=== PATIENT | female | born 1935 | race American Indian/Alaskan Native ===

== ENCOUNTER 2019-02-07 12:59 | Inpatient (IN) | payer OTHER ==
--- NOTE | 2019-02-07 13:18 | Emergency Department Report ---
Blank Doc - Documentation Documentation: 83 y/o female presents with family reporting a 1 week history of worsening sp eech, arm weakness, and change in mental status. History of HTN and prescribed BP medications however did not take the medications while in [place] for the last 1-2 months which his when family yessi noticed symptoms. They called to have her picked up due to mental status change and weakness. She was picked up yesterday continuing to c/o of weakness, speech changes and HTN. This initial assessment/diagnostic orders/clinical plan/treatment(s) is/are subject to change based on patient's health status, clinical progression and re- assessment by fellow clinical providers in the ED. Further treatment and workup at subsequent clinical providers discretion. Patient/guardians urged not to elope from the ED as their condition may be serious if not clinically assessed and managed. Initial orders include: Plan Stroke evaluation out side of [facility] timeline
[2019-02-07 14:17] LABS: Basophils # (Auto) 0.1 K/mm3 (0.0-0.1); Basophils % (Auto) 0.7 % (0.0-1.8); Eosinophils # (Auto) 0.2 K/mm3 (0.0-0.4); Eosinophils % (Auto) 2.3 % (0.0-4.3); Hematocrit 41.7 % (30.3-42.9); Hemoglobin 13.6 gm/dl (10.1-14.3); Lymphocytes # (Auto) 2.7 K/mm3 (1.2-5.4); Lymphocytes % (Auto) 33.1 % (13.4-35.0); Mean Corpuscular HGB Conc 33 % (30-34); Mean Corpuscular Volume 84 fl (79-97); Monocytes # (Auto) 0.5 K/mm3 (0.0-0.8); Platelet Count 232 K/mm3 (140-440); Red Blood Count 4.95 M/mm3 (3.65-5.03); Red Cell Distribution Width 15.3 % (13.2-15.2)
[2019-02-07 14:28] LABS: INR 1.14 (0.87-1.13)
[2019-02-07 14:29] LABS: Partial Thromboplastin Time 26.6 Sec. (24.2-36.6)
[2019-02-07 14:36] LABS: Creatine Kinase MB 3.2 ng/mL (0.0-4.0)
[2019-02-07 14:38] LABS: Alanine Aminotransferase 15 units/L (7-56); Albumin 4.1 g/dL (3.9-5); BUN/Creatinine Ratio 13; Blood Urea Nitrogen 12 mg/dL (7-17); Calcium 9.4 mg/dL (8.4-10.2); Hemolysis Index 9
[2019-02-07 14:39] LABS: Thrombin Time 17.1 Sec. (15.1-19.6)
--- NOTE | 2019-02-07 15:32 | Cat Scan Report ---
CT head/brain wo con INDICATION: Stroke symptoms. TECHNIQUE: Routine CT head without contrast. All CT scans at this location are performed using CT dos e reduction for ALARA by means of automated exposure control. COMPARISON: None. FINDINGS: BRAIN / INTRACRANIAL CONTENTS: No acute hemorrhage, mass effect, midline shift, or hydrocephalus. No appreciable acute large territorial or lacunar infarct. No chronic infarct. Age-commensurate ventricu lar and cisternal/sulcal prominence. Calcifications of the falx and tentorium are noted. There is ath erosclerotic calcification in the intracranial internal carotid arteries. 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 There has been previous bilateral lens replacement. SINUSES / MASTOIDS: No significant abnormality of visualized sinuses and mastoid air cells. ADDITIONAL FINDINGS: None. IMPRESSION: 1. No acute intracranial abnormality identified. Signer Name: Carlos Carney MD Signed: 02/07/2019 3:28 PM Workstation Name: [id number]
--- NOTE | 2019-02-07 15:47 | Emergency Department Report ---
HPI - General Chief Complaint: Neuro Symptoms/Deficit Time Seen by Provider: 02/07/19 13:12 - HPI HPI: 83-year-old Kosovan female presents to the emergency department with her [id number] with a complaint of altered mental status, left arm pain and wea kness. The patient was in [facility] for the past month but the family there contacted the patient's son and said that she was altered and to come and get her. She was brought back from [facility] yesterday and the family has noticed that she is confused. Apparently she is also been having a one-week history of this left arm pain and weakness. She uses her right arm to move the left arm, but she has been seen moving it independently. She also has been squeezing the left arm to deal with the pain. No neck or chest pain but the arm pain does radiate down from the shoulder to the fingers. Family also says there is a difference in her speech and decreased appetite. She has a past nuchal history of hypertension. She has not been given anything or taken anything for her symptoms prior to presentation. The patient does not speak Vietnamese and the [id number] is currently translating. She also says that she took her blood pressure earlier in the day and found it to be elevated with a systolic greater than 200. ED Past Medical Hx - Past Medical History Previous Medical History?: Yes Hx Hypertension: Yes - Surgical History Past Surgical History?: No - Social History Smoking Status: Never Smoker Substance Use Type: None - Medications Home Medications: Home Medications Medication Instructions Recorded Confirmed Last Taken Type No Known Home Medications [No 02/07/19 02/07/19 Unknown History Reported Home Medications] ED Review of Systems ROS: Stated complaint: HBP/200/LFT ARM PAIN Other details as noted in HPI Comment: Unobtainable due to pts medical conditions Constitutional: weakness Musculoskeletal: arthralgia, myalgia Neurological: weakness, confusion Physical Exam - Physical Exam Vital Signs: Vital Signs 02/07/19 02/07/19 13:10 15:07 Temperature 98.8 F Pulse Rate 73 Respiratory 16 18 Rate Blood Pressure 142/94 O2 Sat by Pulse 100 18 L Oximetry Physical Exam: GENERAL: The patient is well-developed well-nourished. HENT: Normocephalic. Atraumatic. Patient has moist mucous membranes. EYES: Extraocular motions are intact. Pupils equal reactive to light bilaterally. NECK: Supple. Trachea is midline. CHEST/LUNGS: Clear to auscultation. There is no respiratory distress noted. HEART/CARDIOVASCULAR: Regular. There is no tachycardia. There is no murmur. ABDOMEN: Abdomen is soft, nontender. Patient has normal bowel sounds. There is no abdominal distention. SKIN: Skin is warm and dry. NEURO: The patient is awake, alert and cooperative. The patient has no focal neurologic deficits. Normal speech. No facial asymmetry. No pronator drift. MUSCULOSKELETAL: There is no tenderness or deformity. There is no limitation range of motion. There is no evidence of acute injury. ED Course Vital Signs 02/07/19 02/07/19 13:10 15:07 Temperature 98.8 F Pulse Rate 73 Respiratory 16 18 Rate Blood Pressure 142/94 O2 Sat by Pulse 100 18 L Oximetry ED Medical Decision Making - Lab Data Result diagrams: 02/07/19 13:52 02/07/19 13:52 - EKG Data -: EKG Interpreted by Nd EKG shows normal: sinus rhythm, axis, intervals, QRS complexes, ST-T waves Rate: bradycardia (53) - EKG Data When compared to previous EKG there are: previous EKG unavailable Interpretation: other (Sinus bradycardia. No STEMI) - Radiology Data Radiology results: report reviewed CT head/brain wo con INDICATION: Stroke symptoms. TECHNIQUE: Routine CT head without contrast. All CT scans at this location are performed using CT dose reduction for ALARA by means of automated exposure control. COMPARISON: None. FINDINGS: BRAIN / INTRACRANIAL CONTENTS: No acute hemorrhage, mass effect, midline shift, or hydrocephalus. No appreciable acute large territorial or lacunar infarct. No chronic infarct. Age-commensurate ventricular and cisternal/sulcal prominence. Calcifications of the falx and tentorium are noted. There is atherosclerotic calcification in the intracranial internal carotid arteries. 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 There has been previous bilateral lens replacement. SINUSES / MASTOIDS: No significant abnormality of visualized sinuses and mastoid air cells. ADDITIONAL FINDINGS: None. IMPRESSION: 1. No acute intracranial abnormality identified. - Medical Decision Making This patient was brought in for concern of altered mental status and some left arm pain and weakness. The patient's daughter has to translate and therefore it is difficult to assess the patient's level of confusion, but the daughter says that she is confused. CT of the head does not show any bleed, shift, mass, ischemia or any other acute process. I do not appreciate any obvious lateralizing or focal deficits. The patient doesn't appear to have some intermittent sharp left arm pains. Labs have been mostly unremarkable according CBC, metabolic panel, TSH, troponin. EKG did not show any signs of ST elevation IL, ischemia or dysrhythmia. Patient will be admitted to the hospital for further evaluation and treatment and was accepted for admission by the hospitalist, Dr. Jacobsen. - Differential Diagnosis CVA, TIA, Hypoglycemia, IL Critical Care Time: No Critical care attestation.: If time is entered above; I have spent that time in minutes in the direct care of this critically ill patient, excluding procedure time. ED Disposition Clinical Impression: Weakness Altered mental status Qualifiers: Altered mental status type: unspecified Qualified Code(s): R41.82 - Altered mental status, unspecified Disposition: DC-09 OP ADMIT IP TO THIS HOSP Is pt being admited?: Yes Condition: Fair Time of Disposition: 16:13
[2019-02-07 18:01] LABS: Bilirubin,Urine Negative (Negative); Color,Urine Straw (Yellow)
[2019-02-07 18:02] LABS: Blood,Urine Small (Negative); Protein,Urine <15 mg/dL mg/dL (Negative); Urobilinogen,Urine < 2.0 mg/dL (<2.0)
[2019-02-07 18:40] LABS: Hyaline Casts,Urine 1 /LPF; Mucus,Urine FEW /HPF
[2019-02-07] MEDS ORDERED: ONDANSETRON 4 MG/2 ML INJ IV PRN (21:36)
[2019-02-07] MEDS ORDERED: METOCLOPRAMIDE 10 MG/2 ML INJ IV PRN (21:36)
[2019-02-07] MEDS ORDERED: HYDROmorphone 1 MG/1 ML INJ IV PRN (21:36)
[2019-02-07] MEDS ORDERED: ACETAMINOPHEN 325 MG TAB PO PRN (21:36)
[2019-02-07] MEDS ORDERED: oxyCODONE /ACETAMINOPHEN 5-325MG TAB PO PRN (21:36)
[2019-02-07] MEDS ORDERED: SODIUM CHLORIDE 0.9% 1000 ML 1,000 ML IV SCH (22:00)
[2019-02-07] MEDS: FAMOTIDINE 20 MG/2 ML INJ IV SCH (23:32)
--- NOTE | 2019-02-08 07:10 | Event Note ---
Date: 02/07/19 See H/p in reports New onset Dementia --2 weeks R/o CVA CVA w/u Increasingly confused for 2 to 4 weeks.
--- NOTE | 2019-02-08 08:44 | History and Physical Report ---
CHIEF COMPLAINT: Increasing memory loss for the last 2-3 weeks. HISTORY OF PRESENT ILLNESS: An 83-year-old female who used to live in [place] most of her life for the last 30 years, moved to [facility] 4 weeks ago, and as per the [id number], the patient has been having altered sensorium. The patient is alert, but not able to recognize her immediate family members and not talking properly. Increasingly agitated. She also has a left shoulder pain and left arm weakness. Able to walk. In summary, the patient has been having increasing forgetfulness and difficulty conversing and recognizing people over the last 2-3 weeks. The patient has been normal and alert and oriented 2-3 weeks ago. The patient was brought in from [facility] because of the acute onset of confusion over the past 2-3 weeks. The patient brought in for evaluation. The patient is able to walk. No focal deficits. Has some left arm weakness secondary to left shoulder pain. PAST MEDICAL HISTORY: Significant for hypertension. PAST SURGICAL HISTORY: None. SOCIAL HISTORY: Does not smoke. No alcohol, no recreational drugs. FAMILY HISTORY: Hypertension. REVIEW OF SYSTEMS: Significant for increasing memory loss over the last 2-3 weeks and altered sensorium. Alert, but not oriented to place, person, and time. PHYSICAL EXAMINATION: GENERAL: Elderly female, confused. VITAL SIGNS: Blood pressure is 158/93, temperature 98.2, pulse 69, respirations 18. HEENT: Unremarkable. Pupils are equal and reactive. NECK: Supple, no lymphadenopathy, no thyromegaly. LUNGS: Clear to auscultation and percussion. Good air entry. CARDIOVASCULAR: S1, S2 heard. No gallop, no murmur, no rub. Apical impulse in left fifth intercostal space and midclavicular line. ABDOMEN: Soft and benign. No hepatosplenomegaly. No guarding, no rigidity. Hernial orifices are normal. EXTREMITIES: Good pedal pulses. Moving all four extremities. CENTRAL NERVOUS SYSTEM: Alert, but not oriented to time, place, and person. LABORATORY DATA: Labs are significant for normal CBC and normal electrolytes. Glucose is 133, slightly high. LFTs are normal. Urine normal. Head CT shows no acute intracranial abnormalities. EKG, normal sinus rhythm. ASSESSMENT AND PLAN: 1. Acute cerebrovascular accident, possible frontal stroke. Stroke workup initiated. Neurology consult requested. MRI, carotid duplex scan, and echocardiogram ordered. The patient may have had multiple frontal strokes causing memory loss and disorientation to time, place, and person. 2. Hypertension. Continue antihypertensives. 3. Deep venous thrombosis prophylaxis. Lovenox 30 mg subcutaneous daily and gastrointestinal prophylaxis. JOB# [id number] LIA/CHADWICK ACEVES
[2019-02-08] MEDS: FAMOTIDINE 20 MG/2 ML INJ IV SCH (11:00)
--- NOTE | 2019-02-08 14:21 | Consultation ---
History of Present Illness Consult date: 02/08/19 History of present illness: patient is seen and assessed thanks for consult she only sopeaks creole per nurse patient is talking in gibberish none the less... she is very agitated and does need restraints on the arms advise check for seizures as CPK is slighlty elevated the CT of head is normal for are the moderate calcifications of the anterior falz are of no significance and this is not meningioma advise check labs and inflammatory markers no clear evidenve of diabets Gucose is 133 neuro exam is non focal Medications and Allergies Allergies Allergy/AdvReac Type Severity Reaction Status Date / Time No Known Allergies Allergy Verified 02/07/19 21:47 Home Medications Medication Instructions Recorded Confirmed Last Taken Type No Known Home Medications [No 02/07/19 02/07/19 Unknown History Reported Home Medications] Active Meds: Active Medications Acetaminophen (Tylenol) 650 mg PO Q4H PRN PRN Reason: Pain MILD(1-3)/Fever >100.5/DORADO Enoxaparin Sodium (Enoxaparin) 40 mg SUB-Q QDAY@2200 [facility] Famotidine (Pepcid) 20 mg IV BID [facility] Last Admin: 02/08/19 11:00 Dose: 20 mg Documented by: Haloperidol Lactate (Haldol) 5 mg IM Q6H PRN PRN Reason: Agitation Hydromorphone HCl (Dilaudid) 0.5 mg IV Q3H PRN PRN Reason: Pain , Severe (7-10) Last Admin: 02/07/19 23:32 Dose: 0.5 mg Documented by: Sodium Chloride (Nacl 0.9% 1000 Ml) 1,000 mls @ 75 mls/hr IV DIRECT [facility] Last Admin: 02/08/19 04:56 Dose: 75 mls/hr Documented by: Ondansetron HCl (Zofran) 4 mg IV Q8H PRN PRN Reason: Nausea And Vomiting Oxycodone/Acetaminophen (Percocet 5/325) 1 tab PO Q6H PRN PRN Reason: Pain, Moderate (4-6) Sodium Chloride (Sodium Chloride Flush Syringe 10 Ml) 10 ml IV BID [facility] Last Admin: 02/08/19 11:01 Dose: 10 ml Documented by: Sodium Chloride (Sodium Chloride Flush Syringe 10 Ml) 10 ml IV PRN PRN PRN Reason: LINE FLUSH Last Admin: 02/08/19 05:06 Dose: 10 ml Documented by: Sodium Chloride (Sodium Chloride Flush Syringe 10 Ml) 10 ml IV PRN PRN PRN Reason: LINE FLUSH Physical Examination - Vital Signs Vital Signs: Vital Signs Temp Pulse Resp BP Pulse Ox 98.8 F 73 16 142/94 100 02/07/19 13:10 02/07/19 13:10 02/07/19 13:10 02/07/19 13:10 02/07/19 13:10 Results - Laboratory Findings CBC and BMP: 02/07/19 13:52 02/07/19 13:52 Abnormal Lab Findings: Abnormal Labs 02/07/19 02/07/19 02/07/19 13:52 13:52 13:52 RDW 15.3 H INR 1.14 H Carbon Dioxide 20 L Glucose 133 H Total Creatine Kinase 229 H Urine Blood 02/07/19 Unknown RDW INR Carbon Dioxide Glucose Total Creatine Kinase Urine Blood Small A
--- NOTE | 2019-02-08 14:34 | Progress Note ---
Assessment and Plan Assessment and plan: Patient is a 83 yo Fijian Creole speaking woman with a history of hypertension who presents to [facility] ED with AMS, progressive memory loss. Suspected CVA: treat with ASA and statin Acute metabolic encephalopathy Hypertension: low salt diet and antihypertensives Suspected Dementia vs impaired cognition of the elderly DVT ppx with sq lovenox History Interval history: Patient was seen and examined. Follow-up on current diagnosis of AMS. No overnight events reported to me. Patient speaking Gibberish, her sitter speaks Fijian Creole. Imaging, nursing note, chart, labs and old chart reviewed. No family present. Hospitalist Physical - Physical exam Narrative exam: Gen: chronic disable appearing awake HEENT: NCAT, EOMI, PERRL, OP Clear Neck: supple, no adenopathy, no thyromegaly, no JVD CVS/Heart: regular bradycardia, normal S1S2, pulses present bilaterally Chest/Lungs: CTA B, Symmetrical chest expansion, good air entry bilaterally GI/Abdomen: soft, NTND, good bowel sounds, no guarding or rebound /Bladder: no suprapubic tenderness, no CVA or paraspinal tenderness Extermity/Skin: no c/c/e, no obvious rash MSK: FROM x 4 Neuro: CN 2-12 grossly intact, no new focal deficits Psych: anxious - Constitutional Vitals: Temp Pulse Resp BP Pulse Ox 98.3 F 54 L 18 163/91 92 02/08/19 04:40 02/08/19 04:40 02/08/19 04:40 02/08/19 04:40 02/08/19 08:28 Results - Labs CBC & Chem 7: 02/07/19 13:52 02/07/19 13:52 Labs: Laboratory Last Values WBC 8.2 K/mm3 (4.5-11.0) 02/07/19 13:52 RBC 4.95 M/mm3 (3.65-5.03) 02/07/19 13:52 Hgb 13.6 gm/dl (10.1-14.3) 02/07/19 13:52 Hct 41.7 % (30.3-42.9) 02/07/19 13:52 MCV 84 fl (79-97) 02/07/19 13:52 MCH 28 pg (28-32) 02/07/19 13:52 MCHC 33 % (30-34) 02/07/19 13:52 RDW 15.3 % (13.2-15.2) H 02/07/19 13:52 Plt Count 232 K/mm3 (140-440) 02/07/19 13:52 Lymph % (Auto) 33.1 % (13.4-35.0) 02/07/19 13:52 [place] % (Auto) 6.0 % (0.0-7.3) 02/07/19 13:52 Eos % (Auto) 2.3 % (0.0-4.3) 02/07/19 13:52 Baso % (Auto) 0.7 % (0.0-1.8) 02/07/19 13:52 Lymph # 2.7 K/mm3 (1.2-5.4) 02/07/19 13:52 [place] # 0.5 K/mm3 (0.0-0.8) 02/07/19 13:52 Eos # 0.2 K/mm3 (0.0-0.4) 02/07/19 13:52 Baso # 0.1 K/mm3 (0.0-0.1) 02/07/19 13:52 Seg Neutrophils % 57.9 % (40.0-70.0) 02/07/19 13:52 Seg Neutrophils # 4.7 K/mm3 (1.8-7.7) 02/07/19 13:52 PT 14.5 Sec. (12.2-14.9) 02/07/19 13:52 INR 1.14 (0.87-1.13) H 02/07/19 13:52 APTT 26.6 Sec. (24.2-36.6) 02/07/19 13:52 Thrombin Time 17.1 Sec. (15.1-19.6) 02/07/19 13:52 Sodium 140 mmol/L (137-145) 02/07/19 13:52 Potassium 3.6 mmol/L (3.6-5.0) 02/07/19 13:52 Chloride 106.0 mmol/L (98-107) 02/07/19 13:52 Carbon Dioxide 20 mmol/L (22-30) L 02/07/19 13:52 Anion Gap 18 mmol/L 02/07/19 13:52 BUN 12 mg/dL (7-17) 02/07/19 13:52 Creatinine 0.9 mg/dL (0.7-1.2) 02/07/19 13:52 Estimated GFR > 60 ml/min 02/07/19 13:52 BUN/Creatinine Ratio 13 % 02/07/19 13:52 Glucose 133 mg/dL (65-100) H 02/07/19 13:52 Hemoglobin A1c 5.8 % (4-6) 02/07/19 13:52 Calcium 9.4 mg/dL (8.4-10.2) 02/07/19 13:52 Total Bilirubin 0.30 mg/dL (0.1-1.2) 02/07/19 13:52 AST 19 units/L (5-40) 02/07/19 13:52 ALT 15 units/L (7-56) 02/07/19 13:52 Alkaline Phosphatase 94 units/L (35-129) 02/07/19 13:52 Total Creatine Kinase 229 units/L (30-135) H 02/07/19 13:52 CK-MB (CK-2) 3.2 ng/mL (0.0-4.0) 02/07/19 13:52 CK-MB (CK-2) Rel Index 1.3 (0-4) 02/07/19 13:52 Troponin T < 0.010 ng/mL (0.00-0.029) 02/07/19 13:52 Total Protein 7.5 g/dL (6.3-8.2) 02/07/19 13:52 Albumin 4.1 g/dL (3.9-5) 02/07/19 13:52 Albumin/Globulin Ratio 1.2 % 02/07/19 13:52 TSH 1.570 mlU/mL (0.270-4.200) 02/07/19 15:47 Urine Color Straw (Yellow) 02/07/19 Unknown Urine Turbidity Clear (Clear) 02/07/19 Unknown Urine pH 6.0 (5.0-7.0) 02/07/19 Unknown Ur Specific [place] 1.010 (1.003-1.030) 02/07/19 Unknown Urine Protein <15 mg/dl mg/dL (Negative) 02/07/19 Unknown Urine Glucose (UA) Negative mg/dL (Negative) 02/07/19 Unknown Urine Ketones Negative mg/dL (Negative) 02/07/19 Unknown Urine Blood Small (Negative) A 02/07/19 Unknown Urine Nitrite Negative (Negative) 02/07/19 Unknown Urine Bilirubin Negative (Negative) 02/07/19 Unknown Urine Urobilinogen < 2.0 mg/dL (<2.0) 02/07/19 Unknown Ur Leukocyte Esterase Negative (Negative) 02/07/19 Unknown Urine WBC (Auto) 1.0 /HPF (0.0-6.0) 02/07/19 Unknown Urine RBC (Auto) 5.0 /HPF (0.0-6.0) 02/07/19 Unknown U Epithel Cells (Auto) 1.0 /HPF (0-13.0) 02/07/19 Unknown Hyaline Casts 1 /LPF 02/07/19 Unknown Urine Mucus Few /HPF 02/07/19 Unknown Active Medications - Current Medications Current Medications: Generic Name Dose Route Start Last Admin Trade Name Freq PRN Reason Stop Dose Admin Acetaminophen 650 mg 02/07/19 21:36 Tylenol PO Q4H PRN Pain MILD(1-3)/Fever >100.5/DORADO Enoxaparin Sodium 40 mg 02/08/19 22:00 Enoxaparin SUB-Q QDAY@2200 [facility] Famotidine 20 mg 02/07/19 22:00 02/08/19 11:00 Pepcid IV 20 mg BID [facility] Administration Haloperidol Lactate 5 mg 02/08/19 14:11 Haldol IM Q6H PRN Agitation Hydromorphone HCl 0.5 mg 02/07/19 21:36 02/07/19 23:32 Dilaudid IV 0.5 mg Q3H PRN Administration Pain , Severe (7-10) Sodium Chloride 1,000 mls @ 75 mls/hr 02/07/19 22:00 02/08/19 04:56 Nacl 0.9% 1000 Ml IV 75 mls/hr DIRECT [facility] Administration Ondansetron HCl 4 mg 02/07/19 21:36 Zofran IV Q8H PRN Nausea And Vomiting Oxycodone/Acetaminophen 1 tab 02/07/19 21:36 Percocet 5/325 PO Q6H PRN Pain, Moderate (4-6) Sodium Chloride 10 ml 02/07/19 22:00 02/08/19 11:01 Sodium Chloride Flush Syringe 10 Ml IV 10 ml BID [facility] Administration Sodium Chloride 10 ml 02/07/19 21:36 02/08/19 05:06 Sodium Chloride Flush Syringe 10 Ml IV 10 ml PRN PRN Administration LINE FLUSH Sodium Chloride 10 ml 02/07/19 21:46 Sodium Chloride Flush Syringe 10 Ml IV PRN PRN LINE FLUSH
[2019-02-08] MEDS: HALOPERIDOL LACTATE 5 MG/1 ML INJ IM PRN (14:57)
[2019-02-08] MEDS ORDERED: ENOXAPARIN 40 MG/0.4 ML INJ SUB-Q SCH (22:00)
[2019-02-09] MEDS: ENOXAPARIN 40 MG/0.4 ML INJ SUB-Q SCH ×2 (00:01→21:36)
[2019-02-09] MEDS: FAMOTIDINE 20 MG/2 ML INJ IV SCH ×3 (00:01→21:37)
--- NOTE | 2019-02-09 06:30 | Progress Note ---
Assessment and Plan Assessment and plan: Patient is a 83 yo [place] Creole speaking woman with a history of hypertension who presents to [facility] with AMS, progressive memory loss. Suspected CVA: treat with ASA and statin Acute metabolic encephalopathy Hypertension: low salt diet and antihypertensives Suspected Dementia vs impaired cognition of the elderly DVT ppx with sq lovenox echo, us carotid, mri brain pending History Interval history: Patient was seen and examined. Follow-up on current diagnosis of AMS. No overnight events reported to me. Patient speaking Gibberish, her sitter speaks Cuban Creole. Imaging, nursing note, chart, labs and old chart reviewed. No family present. Hospitalist Physical - Physical exam Narrative exam: Gen: chronic disable appearing awake HEENT: NCAT, EOMI, PERRL, OP Clear Neck: supple, no adenopathy, no thyromegaly, no JVD CVS/Heart: regular bradycardia, normal S1S2, pulses present bilaterally Chest/Lungs: CTA B, Symmetrical chest expansion, good air entry bilaterally GI/Abdomen: soft, NTND, good bowel sounds, no guarding or rebound /Bladder: no suprapubic tenderness, no CVA or paraspinal tenderness Extermity/Skin: no c/c/e, no obvious rash MSK: FROM x 4 Neuro: CN 2-12 grossly intact, no new focal deficits Psych: anxious - Constitutional Vitals: Temp Pulse Resp BP Pulse Ox 97.8 F 63 19 170/61 98 02/09/19 03:32 02/09/19 04:00 02/09/19 04:00 02/09/19 03:32 02/09/19 04:00 Results - Labs CBC & Chem 7: 02/07/19 13:52 02/07/19 13:52 Labs: Laboratory Last Values WBC 8.2 K/mm3 (4.5-11.0) 02/07/19 13:52 RBC 4.95 M/mm3 (3.65-5.03) 02/07/19 13:52 Hgb 13.6 gm/dl (10.1-14.3) 02/07/19 13:52 Hct 41.7 % (30.3-42.9) 02/07/19 13:52 MCV 84 fl (79-97) 02/07/19 13:52 MCH 28 pg (28-32) 02/07/19 13:52 MCHC 33 % (30-34) 02/07/19 13:52 RDW 15.3 % (13.2-15.2) H 02/07/19 13:52 Plt Count 232 K/mm3 (140-440) 02/07/19 13:52 Lymph % (Auto) 33.1 % (13.4-35.0) 02/07/19 13:52 Reeves % (Auto) 6.0 % (0.0-7.3) 02/07/19 13:52 Eos % (Auto) 2.3 % (0.0-4.3) 02/07/19 13:52 Baso % (Auto) 0.7 % (0.0-1.8) 02/07/19 13:52 Lymph # 2.7 K/mm3 (1.2-5.4) 02/07/19 13:52 Reeves # 0.5 K/mm3 (0.0-0.8) 02/07/19 13:52 Eos # 0.2 K/mm3 (0.0-0.4) 02/07/19 13:52 Baso # 0.1 K/mm3 (0.0-0.1) 02/07/19 13:52 Seg Neutrophils % 57.9 % (40.0-70.0) 02/07/19 13:52 Seg Neutrophils # 4.7 K/mm3 (1.8-7.7) 02/07/19 13:52 PT 14.5 Sec. (12.2-14.9) 02/07/19 13:52 INR 1.14 (0.87-1.13) H 02/07/19 13:52 APTT 26.6 Sec. (24.2-36.6) 02/07/19 13:52 Thrombin Time 17.1 Sec. (15.1-19.6) 02/07/19 13:52 Sodium 140 mmol/L (137-145) 02/07/19 13:52 Potassium 3.6 mmol/L (3.6-5.0) 02/07/19 13:52 Chloride 106.0 mmol/L (98-107) 02/07/19 13:52 Carbon Dioxide 20 mmol/L (22-30) L 02/07/19 13:52 Anion Gap 18 mmol/L 02/07/19 13:52 BUN 12 mg/dL (7-17) 02/07/19 13:52 Creatinine 0.9 mg/dL (0.7-1.2) 02/07/19 13:52 Estimated GFR > 60 ml/min 02/07/19 13:52 BUN/Creatinine Ratio 13 % 02/07/19 13:52 Glucose 133 mg/dL (65-100) H 02/07/19 13:52 Hemoglobin A1c 5.8 % (4-6) 02/07/19 13:52 Calcium 9.4 mg/dL (8.4-10.2) 02/07/19 13:52 Total Bilirubin 0.30 mg/dL (0.1-1.2) 02/07/19 13:52 AST 19 units/L (5-40) 02/07/19 13:52 ALT 15 units/L (7-56) 02/07/19 13:52 Alkaline Phosphatase 94 units/L (35-129) 02/07/19 13:52 Total Creatine Kinase 229 units/L (30-135) H 02/07/19 13:52 CK-MB (CK-2) 3.2 ng/mL (0.0-4.0) 02/07/19 13:52 CK-MB (CK-2) Rel Index 1.3 (0-4) 02/07/19 13:52 Troponin T < 0.010 ng/mL (0.00-0.029) 02/07/19 13:52 Total Protein 7.5 g/dL (6.3-8.2) 02/07/19 13:52 Albumin 4.1 g/dL (3.9-5) 02/07/19 13:52 Albumin/Globulin Ratio 1.2 % 02/07/19 13:52 TSH 1.570 mlU/mL (0.270-4.200) 02/07/19 15:47 Urine Color Straw (Yellow) 02/07/19 Unknown Urine Turbidity Clear (Clear) 02/07/19 Unknown Urine pH 6.0 (5.0-7.0) 02/07/19 Unknown Ur Specific [place] 1.010 (1.003-1.030) 02/07/19 Unknown Urine Protein <15 mg/dl mg/dL (Negative) 02/07/19 Unknown Urine Glucose (UA) Negative mg/dL (Negative) 02/07/19 Unknown Urine Ketones Negative mg/dL (Negative) 02/07/19 Unknown Urine Blood Small (Negative) A 02/07/19 Unknown Urine Nitrite Negative (Negative) 02/07/19 Unknown Urine Bilirubin Negative (Negative) 02/07/19 Unknown Urine Urobilinogen < 2.0 mg/dL (<2.0) 02/07/19 Unknown Ur Leukocyte Esterase Negative (Negative) 02/07/19 Unknown Urine WBC (Auto) 1.0 /HPF (0.0-6.0) 02/07/19 Unknown Urine RBC (Auto) 5.0 /HPF (0.0-6.0) 02/07/19 Unknown U Epithel Cells (Auto) 1.0 /HPF (0-13.0) 02/07/19 Unknown Hyaline Casts 1 /LPF 02/07/19 Unknown Urine Mucus Few /HPF 02/07/19 Unknown Active Medications - Current Medications Current Medications: Generic Name Dose Route Start Last Admin Trade Name Heribertoq PRN Reason Stop Dose Admin Acetaminophen 650 mg 02/07/19 21:36 Tylenol PO Q4H PRN Pain MILD(1-3)/Fever >100.5/DORADO Enoxaparin Sodium 40 mg 02/08/19 22:00 02/09/19 00:01 Enoxaparin SUB-Q 40 mg QDAY@2200 ÓSCAR Administration Famotidine 20 mg 02/07/19 22:00 02/09/19 00:01 Pepcid IV 20 mg BID ÓSCAR Administration Haloperidol Lactate 5 mg 02/08/19 14:11 02/08/19 14:57 Haldol IM 5 mg Q6H PRN Administration Agitation Hydromorphone HCl 0.5 mg 02/07/19 21:36 02/07/19 23:32 Dilaudid IV 0.5 mg Q3H PRN Administration Pain , Severe (7-10) Sodium Chloride 1,000 mls @ 75 mls/hr 02/07/19 22:00 02/08/19 04:56 Nacl 0.9% 1000 Ml IV 75 mls/hr DIRECT ÓSCAR Administration Ondansetron HCl 4 mg 02/07/19 21:36 Zofran IV Q8H PRN Nausea And Vomiting Oxycodone/Acetaminophen 1 tab 02/07/19 21:36 Percocet 5/325 PO Q6H PRN Pain, Moderate (4-6) Sodium Chloride 10 ml 02/07/19 22:00 02/09/19 00:01 Sodium Chloride Flush Syringe 10 Ml IV 10 ml BID ÓSCAR Administration Sodium Chloride 10 ml 02/07/19 21:36 02/08/19 05:06 Sodium Chloride Flush Syringe 10 Ml IV 10 ml PRN PRN Administration LINE FLUSH Sodium Chloride 10 ml 02/07/19 21:46 Sodium Chloride Flush Syringe 10 Ml IV PRN PRN LINE FLUSH
--- NOTE | 2019-02-09 13:35 | Progress Note ---
Subjective Date of service: 02/09/19 Interval history: she is much less agitated at this point no hemiparesis the labs are iodered no overt seizures will atempt EEG tomorrow patient stable at this point Objective - Vital Sign Vital Signs - 12hr 02/09/19 02/09/19 02/09/19 03:22 03:32 04:00 Temperature 97.8 F 97.8 F Pulse Rate 61 63 Respiratory 20 20 19 Rate Blood Pressure 120/61 Blood Pressure 170/61 [Right] O2 Sat by Pulse 98 Oximetry 02/09/19 02/09/19 08:58 11:51 Temperature 98.2 F Pulse Rate 59 L Respiratory 18 Rate Blood Pressure 178/92 Blood Pressure [Right] O2 Sat by Pulse 98 98 Oximetry - Laboratory Findings CBC and BMP: 02/07/19 13:52 02/07/19 13:52 Abnormal Lab Findings: Abnormal Labs 02/07/19 02/07/19 02/07/19 13:52 13:52 13:52 RDW 15.3 H INR 1.14 H Carbon Dioxide 20 L Glucose 133 H Total Creatine Kinase 229 H Urine Blood 02/07/19 Unknown RDW INR Carbon Dioxide Glucose Total Creatine Kinase Urine Blood Small A
[2019-02-09] MEDS: HALOPERIDOL LACTATE 5 MG/1 ML INJ IM PRN ×2 (14:46→21:36)
[2019-02-09 20:07] LABS: Basophils % (Auto) 0.5 % (0.0-1.8); Eosinophils # (Auto) 0.1 K/mm3 (0.0-0.4); Eosinophils % (Auto) 0.7 % (0.0-4.3); Hematocrit 44.4 % (30.3-42.9); Hemoglobin 14.3 gm/dl (10.1-14.3); Lymphocytes # (Auto) 2.1 K/mm3 (1.2-5.4); Mean Corpuscular HGB Conc 32 % (30-34); Mean Corpuscular Volume 86 fl (79-97); Monocytes # (Auto) 0.6 K/mm3 (0.0-0.8); Monocytes % (Auto) 5.8 % (0.0-7.3); Platelet Count 194 K/mm3 (140-440); Red Blood Count 5.17 M/mm3 (3.65-5.03); Red Cell Distribution Width 15.7 % (13.2-15.2)
[2019-02-09 20:11] LABS: Alanine Aminotransferase 15 units/L (7-56); Albumin 4.1 g/dL (3.9-5); BUN/Creatinine Ratio 19; Blood Urea Nitrogen 17 mg/dL (7-17); Calcium 9.7 mg/dL (8.4-10.2); HDL Cholesterol 46 mg/dL (40-59); Hemolysis Index 20; LDL Cholesterol,Direct 212 mg/dL (50-130)
[2019-02-09] MEDS ORDERED: hydrALAZINE 20 MG/1 ML INJ IV PRN (22:11)
[2019-02-10 04:03] VITALS: BP 189/86
[2019-02-10] MEDS: HALOPERIDOL LACTATE 5 MG/1 ML INJ IM PRN (05:07)
--- NOTE | 2019-02-10 11:45 | Discharge Summary ---
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 Suspected CVA: treat with ASA and statin, pt has been spitting pills out Acute metabolic encephalopathy Hypertension: low salt diet and antihypertensives Suspected Dementia vs impaired cognition of the elderly DVT ppx with sq lovenox Patient is not cooperative enough for MRI, will discharge home Disposition: [id number] HOME UNDER HOME [facility] Time spent for discharge: 32 minutes Core Measure Documentation - Palliative Care Palliative Care/ Comfort Measures: Not Applicable - Core Measures Any of the following diagnoses?: stroke - VTE Discharge Requirements Deep Vein Thrombosis/Pulmonary Embolism Present on Admission: No Has pt received <5 days of overlap therapy or INR<2.0: No Anticoagulant overlap therapy prescribed at discharge: No Contraindication No Overlap Therapy order at DC: Not Indicated - Stroke Discharge Requirements Statin for LDL = or >70 mg/dl on DC: Yes Anticoag for atrial fib/atrial flutter: Not Applicable Reason for no anticoag for AF/F on DC: Not Indicated Antithrombotic for ischemic stroke: Yes Exam - Physical Exam Narrative exam: Gen: chronic disable appearing awake HEENT: NCAT, EOMI, PERRL, OP Clear Neck: supple, no adenopathy, no thyromegaly, no JVD CVS/Heart: regular bradycardia, normal S1S2, pulses present bilaterally Chest/Lungs: CTA B, Symmetrical chest expansion, good air entry bilaterally GI/Abdomen: soft, NTND, good bowel sounds, no guarding or rebound /Bladder: no suprapubic tenderness, no CVA or paraspinal tenderness Extermity/Skin: no c/c/e, no obvious rash MSK: FROM x 4 Neuro: CN 2-12 grossly intact, no new focal deficits Psych: anxious - Constitutional Vitals: Temp Pulse Resp BP Pulse Ox 97.5 F L 56 L 18 189/86 100 02/10/19 04:00 02/10/19 04:11 02/10/19 04:00 02/10/19 04:11 02/10/19 08:43 Plan Activity: up only with assistance, fall precautions, other (no strenous activity) Diet: low salt Follow up with: EDNA ZURITA MD [Primary Care Provider] - 3-5 Days RICHADR GOLDMAN MD [Staff Physician] - 7 Days Prescriptions: AtorvaSTATin [Lipitor] 40 mg PO QHS #30 tablet Aspirin [Aspirin BABY CHEW TAB] 81 mg PO QDAY #30 tab.chew
--- NOTE | 2019-02-10 12:52 | Vascular Lab Report ---
"DUPLEX DOPPLER ULTRASOUND CAROTID, BILATERAL INDICATION: stroke. FINDINGS: RIGHT CAROTID: Mild plaque Right CCA velocity: 67 cm/sec. Right ICA peak systolic velocity: 111 cm/sec. ICA/CCA PSV Ratio: 1.7. Right Vertebral Artery: Antegrade flow. LEFT CAROTID: Mild plaque Left CCA velocity: 90 cm/sec. Left ICA peak systolic velocity: 78 cm/sec. ICA/CCA PSV Ratio: 0.9. Left Vertebral Artery: Antegrade flow. IMPRESSION: 1. Right Internal Carotid Artery: Less than 50% diameter stenosis. 2. Left Internal Carotid Artery: Less than 50% diameter stenosis. Velocity criteria are extrapolated from diameter data as defined by the Society of Radiologists in Ul trasound Consensus Conference, Radiology 2003; 229;340-346. Degree of Stenosis (%) || ICA PSV (cm/sec) || Plaque estimate (%) || ICA/CCA PSV Ratio Normal <125 None <2.0 <50 <125 <50 <2.0 50-69 125-230 50 2.0-4.0 70 but less than 100 >230 50 >4.0 Near occlusion High, low, or none visible variable Total occlusion None visible; no lumen N/A Signer Name: Reji Solomon MD Signed: 02/10/2019 12:48 PM Workstation Name: [id number]
[2019-02-10] MEDS ORDERED: ASPIRIN 81 MG TAB CHEW PO SCH (13:00)
== END 2019-02-10 15:00 | disposition home health service (06) | DRG 64 ==
LOC: ED 12:59 → 4A 16:14 → OBSVTOIN 16:14
PROVIDERS: ADMIT Internal Medicine; ATTEND Internal Medicine
DX: I63.9 Cerebral infarction, unspecified (principal); G93.41 Metabolic encephalopathy; G83.24 Monoplegia of upper limb affecting left nondominant side; I10 Essential (primary) hypertension; F03.90 Unspecified dementia, unspecified severity, without behavioral disturbance, psychotic disturbance, mood disturbance, and anxiety; Z79.84 Long term (current) use of oral hypoglycemic drugs
CPT/HCPCS: 36415; 70450; 80053; 80061; 81001; 82550; 82553; 82607; 82747; 83036; 84443; 84484; 85025; 85610; 85670; 85730; 93005; 93010; 93880; 96365; 96372; 96375; G0378; J0360; J1170; J1630; J1650; J7030